=== PATIENT | female | born 1935 | race Caucasian/White ===

== ENCOUNTER 2024-06-22 19:41 | Emergency (ER) | payer MEDICARE, OTHER ==
[~2024-06-22] VITALS: Ht 165.1 cm; Wt 70.3 kg
[2024-06-22 19:44] VITALS: BP 174/80; PULSE 76; RESP 14; TEMP 98.2; O2SAT 98
[2024-06-22] MEDS ORDERED: MORPHINE SULFATE 4 MG/ML SYR IVP ONE (21:00)
[2024-06-22] MEDS: ACETAMINOPHEN EXTRA STRENGTH 500 MG TAB PO ONE (22:20)
[2024-06-22 23:03] VITALS: BP 187/73; PULSE 74; RESP 15; TEMP 98.2; O2SAT 98
== END 2024-06-22 23:03 | disposition home or self-care (01) ==
LOC: MED 19:41
DX: S29.012A Strain of muscle and tendon of back wall of thorax, initial encounter (principal); S00.03XA Contusion of scalp, initial encounter; M54.2 Cervicalgia; R07.9 Chest pain, unspecified; I10 Essential (primary) hypertension; E78.00 Pure hypercholesterolemia, unspecified; W01.198A Fall on same level from slipping, tripping and stumbling with subsequent striking against other object, initial encounter; Y93.01 Activity, walking, marching and hiking; Y92.89 Other specified places as the place of occurrence of the external cause; Y99.8 Other external cause status
CPT/HCPCS: 70450; 71045; 72125; 90471; 90715; 93005; 99285